=== PATIENT | female | born 1950 ===

== ENCOUNTER 2024-02-28 13:22 | Outpatient (AMB) | payer MEDICARE, SELFPAY ==
--- NOTE | 2024-02-28 13:25 | MHC.OFFVIS ---
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 Denies any past or recent trauma, injury, or falls. She completed EMG study and was told results were nonconclusive. Recent B12 level was normal per patient. She denies diabetes, inguinal hernias or prior surgery, wearing tight clothing or wide belts. She underwent PT in the past for right knee pain, ITB syndrome and received steroid injections at [facility] with good relief. She is interested to restart PT for right thigh symptoms and undergo diagnostic lateral femoral cutaneous nerve block. Today's symptoms and exam is consistent with meralgia paresthetica. Denies any fever, chills, weight loss, abdominal or groin pain, back pain, knee pain, weakness, footdrop, bladder or bowel dysfunction or saddle anesthesia. Location: Right thigh Duration: Chronic symptoms on and off more persistent for past >6 months Characteristics of symptom or complaint: Numbness, tingling, sensitive to touch over lateral thigh Aggravating or associated factors: Standing, walking, crossing/bending right leg, prolonged sitting or lying Relieving factors: Tylenol Treatment: PT for right knee OA, ITB and GTB at [facility] Medical History (Updated 02/28/24 @ 14:17 by LIAM Sethi) Osteoarthritis of right knee Right knee pain Hypothyroid Hypertension Hyperlipidemia Social History Alcohol intake: never Patient Tobacco Use Status: Never used Tobacco Review of Systems Const All systems reviewed & are unremarkable except as noted in HPI and below Physical Exam Vital Signs: Last Vital Signs BP 137/63 02/28/24 13:30 Pulse Ox 98 02/28/24 13:30 Oxygen Delivery Method Room Air 02/28/24 13:30 BMI result Body Mass Index 32.3 General: Appears afebrile. Alert and oriented. Mood and affect appropriate. Follows and participates in conversation appropriately. Respiratory effort is unlabored. No cough. Able to transition from sit to stand unassisted. Ambulates with bilaterally normal heel strike and toe off. General: Yes no CVA tenderness Back/Spine/Pelvis Back: no CVA tenderness Cervical Spine: cervical ROM normal, loss of normal cervical lordosis and No Cervical spine tenderness Thoracic/Lumbar Spine: thoracic and lumbar spine normal to inspection, No Thoracic/lumbar spine scar(s), thoraco-lumbar ROM normal, Lasegue's sign negative, straight leg raise negative bilaterally, No thoracic spinal tenderness and No lumbar spinal tenderness Pelvis: no buttock tenderness Sacroiliac joints: bilaterally nontender Extrem General: Yes capillary refill normal, Yes no clubbing, cyanosis or edema and Yes no calf tenderness Right lower extremity: hip/thigh (Increased light touch sensation, increased pinprick sensation) Details: normal to inspection, tenderness Location: of the hip Location: laterally (hyperesthesia) and over the greater trochanter (moderate TTP) and other (motor function fully intact); no swelling, no ecchymosis, no crepitus, no deformity and no unusual warmth and knee Details: normal to inspection and normal ROM; no tenderness and no swelling Assessment & Plan Assessment & Plan (1) Meralgia paresthetica, right lower limb: Code(s): G57.11 - Meralgia paresthetica, right lower limb Category: Medical (2) Neuropathy of right thigh: Code(s): G57.91 - Unspecified mononeuropathy of right lower limb Category: Medical (3) Greater trochanteric bursitis of right hip: Code(s): M70.61 - Trochanteric bursitis, right hip Category: Medical Plan Script provided for Physical Therapy at [facility] in [place], closer to patient's home per patient's request for right thigh symptoms. Schedule diagnostic right lateral femoral cutaneous nerve block with local and ultrasound guidance to confirm meralgia paresthetica. Expectations, risks and benefits were reviewed. Patient is aware she will be contacted to schedule this procedure. If no pain relief, we will proceed with lumbar spine MRI to rule out lumbar radiculopathy and femoral neuropathy. She reports previous EMG study was nonconclusive. EMG report is not available today. Script provided for capsaicin topical cream. Side effects, administration, and precautions were discussed with patient. All questions and concerns have been answered and patient agreed with the treatment plan. Follow-up after injections and sooner as needed. Orders: Orders PT Evaluation and Treatment Today G57.11 - Meralgia paresthetica, right lower limb, G57.91 - Unspecified mononeuropathy of right lower limb Medications: New capsaicin 0.1% (Arthritis Pain Relief (capsaicin)) do not wash area for at least 30 min after application 1 appl topical TID 60 grams 0RF pain G57.11 - Meralgia paresthetica, right lower limb Coding Level of Care Code New Pt Level 4 (54684) Diagnoses Meralgia paresthetica, right lower limb G57.11 Neuropathy of right thigh G57.91 Greater trochanteric bursitis of right hip M70.61
[2024-02-28 13:30] VITALS: BP 137/63; O2SAT 98; BMI 32.3
== END 2024-02-28 14:14 | disposition home or self-care (01) ==
PROVIDERS: PCP Internal Medicine; Visit Provider Nurse Practitioner Family
DX: G57.11 Meralgia paresthetica, right lower limb (principal); G57.91 Unspecified mononeuropathy of right lower limb; M70.61 Trochanteric bursitis, right hip
CPT/HCPCS: 99204

== ENCOUNTER → 2024-02-28 13:22 | Outpatient (BNVA) | payer MEDICARE, SELFPAY | PROVIDERS: PCP Internal Medicine; Visit Provider Nurse Practitioner Family | DX: G57.11 Meralgia paresthetica, right lower limb (principal); G57.91 Unspecified mononeuropathy of right lower limb; M70.61 Trochanteric bursitis, right hip | CPT/HCPCS: 99202 ==